=== PATIENT | female | born 1970 | race Caucasian/White ===

== ENCOUNTER 2017-08-31 20:14 | Emergency (ER) | payer MEDICAID ==
[~2017-08-31] VITALS: Ht 157.5 cm; Wt 72.2 kg
[~2017-08-31 20:14] MED LIST: ALBU18HF2 INH; ALBU8HFA PO; FLO44IN INH; PRED10TA PO
[2017-08-31 20:41] LABS: BASOPHILS # (AUTO) 0.2 X10'3 (0-0.2); BASOPHILS % (AUTO) 1.6 % (0-1); EOSINOPHILS # (AUTO) 0.1 X10'3 (0-0.9); EOSINOPHILS % (AUTO) 0.9 % (0-6); HEMATOCRIT 36.6 % (35.0-45.0); HEMOGLOBIN 12.1 g/dl (12.0-16.0); LYMPHOCYTES # (AUTO) 1.6 X10'3 (1.1-4.8); LYMPHOCYTES % (AUTO) 14.2 % (21-51); MEAN CORPUSCULAR HEMOGLOBIN 25.4 PG (27.0-31.0); MEAN PLATELET VOLUME 7.9 FL (7.4-10.4); MONOCYTES % (AUTO) 9.4 % (2-12); NEUTROPHILS # (AUTO) 8.1 X10'3 (1.8-7.7); NEUTROPHILS % (AUTO) 73.9 % (42-75); PLATELET COUNT 238 X10'3 (140-440); RED BLOOD COUNT 4.75 X10'6 (4.20-5.60); RED CELL DISTRIBUTION WIDTH 16.4 % (11.5-14.5)
[2017-08-31 20:51] LABS: INR 0.9 INR
[2017-08-31] MEDS ORDERED: SUCR1TAB34 PO (20:53)
[2017-08-31 20:54] LABS: ALANINE AMINOTRANSFERASE 36 U/L (12-78); ALBUMIN 3.6 G/DL (3.4-5.0); ALBUMIN/GLOBULIN RATIO 0.8 (1.1-1.5); ALKALINE PHOSPHATASE 88 IU/L (46-116); ANION GAP 12 (8-16); ASPARTATE AMINO TRANSFERASE 31 U/L (10-37); BILIRUBIN,TOTAL 0.7 MG/DL (0.1-1.0); BLOOD UREA NITROGEN 11 MG/DL (7-18); BUN/CREATININE RATIO 13.8 (6.6-38.0); CALCIUM 9.3 MG/DL (8.5-10.1); CHLORIDE 98 MMOL/L (99-107); GLUCOSE 94 MG/DL (70-104); POTASSIUM 3.8 MMOL/L (3.5-5.1); SODIUM 135 MMOL/L (135-145); TOTAL CARBON DIOXIDE 24.8 MMOL/L (24-32); TOTAL PROTEIN 8.3 G/DL (6.4-8.2); eGFR 77 ML/MIN
[2017-08-31] MEDS ORDERED: sucralfate 1 gm tablet PO ONE (21:00)
[2017-08-31 21:12] VITALS: BP 157/96
[2017-08-31 21:16] LABS: CLARITY,URINE CLEAR (Clear); COLOR,URINE YELLOW (Yellow); GLUCOSE, URINE NEGATIVE (Neg); KETONES,URINE NEGATIVE (Neg); LEUKOCYTE ESTERASE ,URINE NEGATIVE (Neg); NITRITES, URINE NEGATIVE (Neg); OCCULT BLOOD,URINE LARGE (Neg); PROTEIN,URINE NEGATIVE (Neg); UROBILINOGEN,URINE 0.2 E.U/dL (0.2-1.0)
[2017-08-31 21:23] LABS: UA COLLECTION TYPE CLN CATCH MIDSTREAM
[2017-08-31 21:25] LABS: BACTERIA,URINE 1+ /HPF (Neg); SQUAMOUS EPITHELIAL CELL,UR FEW /LPF (FEW)
== END 2017-08-31 21:14 | disposition home or self-care (01) ==
LOC: ER 20:14
DX: K29.70 Gastritis, unspecified, without bleeding (principal); J45.909 Unspecified asthma, uncomplicated; Z88.8 Allergy status to other drugs, medicaments and biological substances; Z79.899 Other long term (current) drug therapy
CPT/HCPCS: 36415; 80053; 81001; 85025; 85610; 87088; 99284

== ENCOUNTER 2018-01-17 01:03 | Emergency (ER) | payer MEDICAID ==
[~2018-01-17] VITALS: Ht 157.5 cm; Wt 73.7 kg
[~2018-01-17 01:03] MED LIST changes: +SUCR1TAB34 PO
[2018-01-17 01:07] VITALS: BP 166/108
[2018-01-17] MEDS ORDERED: methylPREDNISolone sod succ 125mg/2ml vial IM ONE (01:20)
[2018-01-17] MEDS ORDERED: ipratropium/albuterol 3ml nebule NEB ONE (01:20)
[2018-01-17] MEDS ORDERED: PRED20TA PO (02:21)
== END 2018-01-17 02:27 | disposition home or self-care (01) ==
LOC: ER 01:04
DX: J45.909 Unspecified asthma, uncomplicated (principal); Z88.8 Allergy status to other drugs, medicaments and biological substances; Z79.899 Other long term (current) drug therapy
CPT/HCPCS: 94640; 94760; 96372; 99283; J2930

== ENCOUNTER 2018-07-23 22:53 | Emergency (ER) | payer MEDICAID ==
[~2018-07-23] VITALS: Ht 157.5 cm; Wt 73.0 kg
[2018-07-23] MEDS ORDERED: ipratropium/albuterol 3ml nebule NEB ONE (23:15)
[2018-07-23] MEDS ORDERED: predniSONE 20 mg tablet PO ONE (23:15)
[2018-07-23] MEDS ORDERED: ONDA4TAB12 PO (23:49)
[2018-07-23] MEDS ORDERED: PRED20TA PO (23:49)
[2018-07-23] MEDS ORDERED: ondansetron 4mg rapidly disintigrating tab PO ONE (23:50)
[2018-07-24 00:16] VITALS: BP 153/89
== END 2018-07-24 00:18 | disposition home or self-care (01) ==
LOC: ER 22:53
DX: J45.901 Unspecified asthma with (acute) exacerbation (principal); J44.9 Chronic obstructive pulmonary disease, unspecified; Z87.891 Personal history of nicotine dependence; Z88.1 Allergy status to other antibiotic agents
CPT/HCPCS: 94640; 94760; 99283; J7512

== ENCOUNTER 2019-05-02 16:25 | Emergency (ER) | payer MEDICAID ==
[~2019-05-02] VITALS: Ht 157.5 cm; Wt 75.0 kg
[~2019-05-02 16:25] MED LIST changes: +ONDA4TAB12 PO
[2019-05-02] MEDS ORDERED: normal saline 1000ML IV soln IVB ONE (16:45)
[2019-05-02] MEDS ORDERED: methylPREDNISolone sod succ 125mg/2ml vial IV ONE (16:45)
[2019-05-02] MEDS ORDERED: magnesium 2GM in 50ml NS 50 ML IV ONE (16:45)
[2019-05-02] MEDS ORDERED: albuterol 2.5 MG/3 ML nebule CONTNEB PRN (16:45)
[2019-05-02 17:06] LABS: BASOPHILS # (AUTO) 0.1 X10'3 (0-0.2); BASOPHILS % (AUTO) 1.1 % (0-1); EOSINOPHILS # (AUTO) 0.5 X10'3 (0-0.9); EOSINOPHILS % (AUTO) 5.9 % (0-6); HEMATOCRIT 40.6 % (35.0-45.0); HEMOGLOBIN 14.1 g/dl (12.0-16.0); LYMPHOCYTES # (AUTO) 1.7 X10'3 (1.1-4.8); MEAN CORPUSCULAR HEMOGLOBIN 29.8 PG (27.0-31.0); MEAN CORPUSCULAR HGB CONC 34.8 g/dL (33.0-36.5); MEAN CORPUSCULAR VOLUME 85.5 FL (78-98); MEAN PLATELET VOLUME 7.7 FL (7.4-10.4); MONOCYTES # (AUTO) 0.9 X10'3 (0-0.9); MONOCYTES % (AUTO) 11.2 % (2-12); NEUTROPHILS % (AUTO) 60.8 % (42-75); PLATELET COUNT 257 X10'3 (140-440); RED BLOOD COUNT 4.74 X10'6 (4.20-5.60); RED CELL DISTRIBUTION WIDTH 15.7 % (11.5-14.5); WHITE BLOOD COUNT 8.3 X10'3 (4.5-11.0)
[2019-05-02 17:17] LABS: ALANINE AMINOTRANSFERASE 36 U/L (12-78); ALBUMIN 3.9 G/DL (3.4-5.0); ALBUMIN/GLOBULIN RATIO 0.9 (1.1-1.5); ALKALINE PHOSPHATASE 128 IU/L (46-116); ANION GAP 12 (8-16); ASPARTATE AMINO TRANSFERASE 24 U/L (10-37); BILIRUBIN,TOTAL 0.4 MG/DL (0.1-1.0); BLOOD UREA NITROGEN 10 MG/DL (7-18); BUN/CREATININE RATIO 11.2 (6.6-38.0); CALCIUM 9.5 MG/DL (8.5-10.1); CHLORIDE 103 MMOL/L (99-107); CREATININE 0.89 MG/DL (0.40-0.90); GLUCOSE 118 MG/DL (70-104); POTASSIUM 3.9 MMOL/L (3.5-5.1); SODIUM 139 MMOL/L (135-145); TOTAL CARBON DIOXIDE 23.6 MMOL/L (24-32); TOTAL PROTEIN 8.2 G/DL (6.4-8.2); eGFR 68 ML/MIN
[2019-05-02] MEDS ORDERED: PRED20TA PO (17:46)
[2019-05-02 18:38] VITALS: BP 162/108
== END 2019-05-02 18:39 | disposition home or self-care (01) ==
LOC: ER 16:26
DX: J45.901 Unspecified asthma with (acute) exacerbation (principal); Z87.11 Personal history of peptic ulcer disease; Z88.3 Allergy status to other anti-infective agents; Z79.899 Other long term (current) drug therapy
CPT/HCPCS: 36415; 71045; 80053; 85025; 94644; 96365; 96375; 99285; J2930; J3475; J7030; 94760

== ENCOUNTER 2019-06-17 08:48 | Emergency (ER) | payer MEDICAID ==
[~2019-06-17] VITALS: Ht 157.5 cm; Wt 75.8 kg
[2019-06-17] MEDS ORDERED: predniSONE 20 mg tablet PO ONE (09:25)
[2019-06-17] MEDS ORDERED: acetaminophen w/codeine (30MG) #3 tablet PO ONE (09:25)
[2019-06-17] MEDS ORDERED: PRED20TA PO (09:26)
[2019-06-17] MEDS ORDERED: ACET-3068 PO (09:27)
[2019-06-17 10:05] VITALS: BP 141/96
[2019-06-18] MEDS ORDERED: OMEP-50 PO (23:18)
[2019-06-18] MEDS ORDERED: MOME0.13 INH (23:18)
[2019-06-18] MEDS ORDERED: MULT-1085 PO (23:18)
[2019-06-18] MEDS ORDERED: FLUT16SP11 BOTHNARES (23:18)
[2019-06-18] MEDS ORDERED: ONDA4TAB6 PO (23:18)
[2019-06-18] MEDS ORDERED: ATRIN INH (23:18)
[2019-06-18] MEDS ORDERED: ALB0.5UD IH (23:18)
[2019-06-18] MEDS ORDERED: ALBU8HFA PO (23:18)
[2019-06-18] MEDS ORDERED: FEXO-61 PO (23:18)
[2019-06-18] MEDS ORDERED: IPRA3AMP31 IH (23:18)
[2019-06-19] MEDS ORDERED: PRED10TA23 PO (11:03)
== END 2019-06-17 10:08 | disposition home or self-care (01) ==
LOC: ER 08:49
DX: J45.901 Unspecified asthma with (acute) exacerbation (principal); J44.9 Chronic obstructive pulmonary disease, unspecified; Z90.710 Acquired absence of both cervix and uterus; Z87.891 Personal history of nicotine dependence; Z72.89 Other problems related to lifestyle; Z88.1 Allergy status to other antibiotic agents; Z79.899 Other long term (current) drug therapy
CPT/HCPCS: 93005; 99283; J7512

== ENCOUNTER 2020-09-22 20:14 | Emergency (ER) | payer MEDICAID ==
[~2020-09-22] VITALS: Ht 157.5 cm; Wt 80.9 kg
[~2020-09-22 20:14] MED LIST changes: -ALBU18HF2 INH; +ATRIN INH; +FEXO-61 PO; -FLO44IN INH; +FLUT16SP11 BOTHNARES; +IPRA3AMP31 IH; +MOME0.13 INH; +MULT-1085 PO; +OMEP-50 PO; -ONDA4TAB12 PO; +ONDA4TAB6 PO; -PRED10TA PO; -SUCR1TAB34 PO
[2020-09-22 22:38] VITALS: BP 185/117
== END 2020-09-22 22:39 | disposition home or self-care (01) ==
LOC: ER 20:14
DX: I10 Essential (primary) hypertension (principal); F17.210 Nicotine dependence, cigarettes, uncomplicated; Z71.6 Tobacco abuse counseling; J45.909 Unspecified asthma, uncomplicated; J44.1 Chronic obstructive pulmonary disease with (acute) exacerbation; Z88.1 Allergy status to other antibiotic agents; Z79.899 Other long term (current) drug therapy
CPT/HCPCS: 93005; 99283; 99406

== ENCOUNTER 2022-04-25 23:30 | Emergency (ER) | payer MEDICAID ==
[~2022-04-25] VITALS: Ht 157.5 cm; Wt 83.0 kg
[~2022-04-25 23:30] MED LIST changes: +FEXO-353 PO; -FEXO-61 PO; -MOME0.13 INH; +MOME110A INH; -OMEP-50 PO; +OMEP20CA16 PO
[2022-04-26 00:29] LABS: BASOPHILS # (AUTO) 0.1 X10'3 (0-0.2); BASOPHILS % (AUTO) 1.1 % (0-1); EOSINOPHILS # (AUTO) 0.8 X10'3 (0-0.9); EOSINOPHILS % (AUTO) 7.4 % (0-6); HEMATOCRIT 39.7 % (35.0-45.0); HEMOGLOBIN 13.6 g/dl (12.0-16.0); LYMPHOCYTES # (AUTO) 2.5 X10'3 (1.1-4.8); LYMPHOCYTES % (AUTO) 22.3 % (21-51); MEAN CORPUSCULAR HEMOGLOBIN 30.5 PG (27.0-31.0); MEAN CORPUSCULAR HGB CONC 34.2 g/dL (33.0-36.5); MEAN CORPUSCULAR VOLUME 88.9 FL (78-98); MEAN PLATELET VOLUME 7.5 FL (7.4-10.4); MONOCYTES # (AUTO) 1.2 X10'3 (0-0.9); MONOCYTES % (AUTO) 10.5 % (2-12); NEUTROPHILS # (AUTO) 6.5 X10'3 (1.8-7.7); NEUTROPHILS % (AUTO) 58.7 % (42-75); PLATELET COUNT 327 X10'3 (140-440); RED BLOOD COUNT 4.47 X10'6 (4.20-5.60); RED CELL DISTRIBUTION WIDTH 12.8 % (11.5-14.5); WHITE BLOOD COUNT 11.1 X10'3 (4.5-11.0)
[2022-04-26] MEDS ORDERED: methylPREDNISolone sod succ 125mg/2ml vial IV ONE (00:30)
[2022-04-26] MEDS ORDERED: ipratropium/albuterol 3ml nebule NEB ONE (00:30)
[2022-04-26 00:50] LABS: ALANINE AMINOTRANSFERASE 62 U/L (12-78); ALBUMIN 3.6 G/DL (3.4-5.0); ALBUMIN/GLOBULIN RATIO 0.8 (1.1-1.5); ALKALINE PHOSPHATASE 94 IU/L (46-116); ANION GAP 13 (8-16); ASPARTATE AMINO TRANSFERASE 23 U/L (10-37); BILIRUBIN,TOTAL 0.2 MG/DL (0.1-1.0); BLOOD UREA NITROGEN 7 MG/DL (7-18); BUN/CREATININE RATIO 9.5 (6.6-38.0); CALCIUM 9.4 MG/DL (8.5-10.1); CHLORIDE 99 MMOL/L (99-107); CREATININE 0.74 MG/DL (0.40-0.90); GLUCOSE 97 MG/DL (70-104); POTASSIUM 3.8 MMOL/L (3.5-5.1); SODIUM 135 MMOL/L (135-145); TOTAL CARBON DIOXIDE 22.7 MMOL/L (24-32); TOTAL PROTEIN 7.9 G/DL (6.4-8.2); eGFR 83 ML/MIN
[2022-04-26 02:20] LABS: D-DIMER 0.26 MG/L FEU (0-0.50)
[2022-04-26] MEDS ORDERED: PRED20TA PO (03:03)
[2022-04-26 03:16] VITALS: BP 145/77
== END 2022-04-26 03:18 | disposition home or self-care (01) ==
LOC: ER 23:31
DX: J44.9 Chronic obstructive pulmonary disease, unspecified (principal); Z90.49 Acquired absence of other specified parts of digestive tract; Z88.1 Allergy status to other antibiotic agents; Z79.899 Other long term (current) drug therapy
CPT/HCPCS: 36415; 71045; 80053; 83880; 84484; 85025; 85379; 85610; 93005; 94640; 96374; 99285; J2930; 94760

== ENCOUNTER 2022-07-05 02:43 | Emergency (ER) | payer MEDICAID ==
[~2022-07-05] VITALS: Ht 157.5 cm; Wt 78.2 kg
[2022-07-05] MEDS ORDERED: LORazepam 1 MG tablet PO ONE (03:30)
[2022-07-05] MEDS ORDERED: LORazepam 0.5 MG tablet PO ONE (03:35)
[2022-07-05 04:32] LABS: BASOPHILS # (AUTO) 0.1 X10'3 (0-0.2); BASOPHILS % (AUTO) 1.3 % (0-1); EOSINOPHILS # (AUTO) 0.3 X10'3 (0-0.9); HEMATOCRIT 31.9 % (35.0-45.0); HEMOGLOBIN 10.7 g/dl (12.0-16.0); LYMPHOCYTES # (AUTO) 2.1 X10'3 (1.1-4.8); MEAN CORPUSCULAR HEMOGLOBIN 29.1 PG (27.0-31.0); MEAN CORPUSCULAR HGB CONC 33.5 g/dL (33.0-36.5); MEAN CORPUSCULAR VOLUME 86.8 FL (78-98); MEAN PLATELET VOLUME 7.8 FL (7.4-10.4); MONOCYTES % (AUTO) 15.4 % (2-12); NEUTROPHILS # (AUTO) 3.2 X10'3 (1.8-7.7); NEUTROPHILS % (AUTO) 47.3 % (42-75); PLATELET COUNT 457 X10'3 (140-440); RED BLOOD COUNT 3.67 X10'6 (4.20-5.60); RED CELL DISTRIBUTION WIDTH 14.2 % (11.5-14.5); WHITE BLOOD COUNT 6.7 X10'3 (4.5-11.0)
[2022-07-05 04:49] LABS: ALANINE AMINOTRANSFERASE 10 U/L (12-78); ALBUMIN 2.5 G/DL (3.4-5.0); ALBUMIN/GLOBULIN RATIO 0.6 (1.1-1.5); ALKALINE PHOSPHATASE 95 IU/L (46-116); ANION GAP 9 (8-16); ASPARTATE AMINO TRANSFERASE 17 U/L (10-37); BILIRUBIN,TOTAL 0.3 MG/DL (0.1-1.0); BLOOD UREA NITROGEN 9 MG/DL (7-18); BUN/CREATININE RATIO 10.5 (6.6-38.0); CALCIUM 8.5 MG/DL (8.5-10.1); CHLORIDE 102 MMOL/L (99-107); CREATININE 0.86 MG/DL (0.40-0.90); GLUCOSE 90 MG/DL (70-104); MAGNESIUM 1.8 MG/DL (1.5-2.4); SODIUM 136 MMOL/L (135-145); TOTAL CARBON DIOXIDE 24.8 MMOL/L (24-32); TOTAL PROTEIN 6.9 G/DL (6.4-8.2); eGFR 70 ML/MIN
[2022-07-05 04:54] LABS: POTASSIUM 2.9 MMOL/L (3.5-5.1)
[2022-07-05] MEDS ORDERED: potassium Cl 20 mEq SR tablet PO STA ×2 (04:55→05:04)
[2022-07-05] MEDS ORDERED: POTA-207 PO (05:09)
[2022-07-05 05:20] VITALS: BP 124/67
== END 2022-07-05 05:26 | disposition home or self-care (01) ==
LOC: ER 02:44
DX: E87.6 Hypokalemia (principal); J44.9 Chronic obstructive pulmonary disease, unspecified; Z90.710 Acquired absence of both cervix and uterus; Z98.890 Other specified postprocedural states; Z87.891 Personal history of nicotine dependence; Z88.1 Allergy status to other antibiotic agents; Z88.8 Allergy status to other drugs, medicaments and biological substances; Z79.899 Other long term (current) drug therapy
CPT/HCPCS: 80053; 83735; 85025; 99283

== ENCOUNTER 2023-03-14 20:42 | Emergency (ER) | payer MEDICAID ==
[~2023-03-14] VITALS: Ht 157.5 cm; Wt 75.0 kg
[2023-03-14] MEDS ORDERED: ipratropium/albuterol 3ml nebule NEB ONE (20:55)
[2023-03-14 21:43] VITALS: PULSE 101; RESP 16; O2SAT 97
[2023-03-14 21:44] LABS: BASOPHILS # (AUTO) 0.1 X10'3 (0-0.2); BASOPHILS % (AUTO) 0.9 % (0-1); EOSINOPHILS # (AUTO) 0.2 X10'3 (0-0.9); EOSINOPHILS % (AUTO) 2.9 % (0-6); HEMATOCRIT 40.3 % (35.0-45.0); HEMOGLOBIN 13.7 g/dl (12.0-16.0); LYMPHOCYTES # (AUTO) 1.2 X10'3 (1.1-4.8); LYMPHOCYTES % (AUTO) 17.7 % (21-51); MEAN CORPUSCULAR HEMOGLOBIN 30.7 PG (27.0-31.0); MEAN CORPUSCULAR HGB CONC 33.9 g/dL (33.0-36.5); MEAN CORPUSCULAR VOLUME 90.4 FL (78-98); MEAN PLATELET VOLUME 7.8 FL (7.4-10.4); MONOCYTES # (AUTO) 1.1 X10'3 (0-0.9); MONOCYTES % (AUTO) 16.5 % (2-12); NEUTROPHILS # (AUTO) 4.2 X10'3 (1.8-7.7); PLATELET COUNT 213 X10'3 (140-440); RED BLOOD COUNT 4.45 X10'6 (4.20-5.60); RED CELL DISTRIBUTION WIDTH 13.5 % (11.5-14.5); WHITE BLOOD COUNT 6.8 X10'3 (4.5-11.0)
--- NOTE | 2023-03-14 21:44 | NUR ---
RT AT BEDSIDE WITH PATIENT.
[2023-03-14 21:50] VITALS: PULSE 96; RESP 18
[2023-03-14 21:50] LABS: ALANINE AMINOTRANSFERASE 16 U/L (12-78); ALBUMIN 3.7 G/DL (3.4-5.0); ALBUMIN/GLOBULIN RATIO 0.9 (1.1-1.5); ALKALINE PHOSPHATASE 108 IU/L (46-116); ANION GAP 10 (8-16); ASPARTATE AMINO TRANSFERASE 18 U/L (10-37); BILIRUBIN,TOTAL 0.5 MG/DL (0.1-1.0); BLOOD UREA NITROGEN 13 MG/DL (7-18); BUN/CREATININE RATIO 13.1 (10.0-20.0); CALCIUM 9.2 MG/DL (8.5-10.1); CHLORIDE 101 MMOL/L (99-107); CREATININE 0.99 MG/DL (0.40-0.90); GLUCOSE 106 MG/DL (70-104); POTASSIUM 3.7 MMOL/L (3.5-5.1); SODIUM 137 MMOL/L (135-145); TOTAL CARBON DIOXIDE 26.4 MMOL/L (24-32); TOTAL PROTEIN 7.7 G/DL (6.4-8.2); eCRCL 53 ML/MIN; eGFR 59 ML/MIN
[2023-03-14 21:57] LABS: PRO BRAIN NATRIURETIC PEPTIDE 47 PG/ML (0-125)
[2023-03-14 22:05] LABS: PLATELET ESTIMATE NORMAL; TOTAL CELLS COUNTED 100
[2023-03-14 22:08] LABS: ELLIPTOCYTES FEW
[2023-03-14] MEDS ORDERED: PRED20TA PO (22:53)
[2023-03-14] MEDS ORDERED: FAMO-128 PO (22:53)
[2023-03-14] MEDS ORDERED: methylPREDNISolone sod succ 125mg/2ml vial IV ONE (22:55)
[2023-03-14] MEDS ORDERED: famotidine/PF 10 mg/ml inj IV ONE (22:55)
[2023-03-14] MEDS ORDERED: pantoprazole 40 MG vial IV ONE (22:55)
[2023-03-14 23:40] VITALS: BP 152/96; PULSE 109; RESP 18; TEMP 98; O2SAT 93
== END 2023-03-14 23:44 | disposition home or self-care (01) ==
LOC: ER 20:43
DX: J44.1 Chronic obstructive pulmonary disease with (acute) exacerbation (principal); Z20.822 Contact with and (suspected) exposure to COVID-19; Z90.710 Acquired absence of both cervix and uterus; Z98.890 Other specified postprocedural states; Z72.89 Other problems related to lifestyle; Z88.1 Allergy status to other antibiotic agents; Z79.899 Other long term (current) drug therapy
CPT/HCPCS: 36415; 71045; 80053; 83880; 84484; 85007; 85025; 87502; 87503; 87811; 93005; 94640; 96374; 96375; 99285; C9113; J2930; J3490; 94760

== ENCOUNTER 2023-06-02 01:54 | Emergency (ER) | payer MEDICAID ==
[~2023-06-02] VITALS: Ht 157.5 cm; Wt 82.1 kg
[~2023-06-02 01:54] MED LIST changes: +FAMO-128 PO
[2023-06-02 01:56] VITALS: TEMP 98.4
[2023-06-02] MEDS: TETanus/Pertussis (Acell)/Diphther VAC/PF (Tdap-Adult) 0.5ml syringe IMVAC ONE (02:52)
[2023-06-02] MEDS: bacitracin 15gm ointment TP ONE (02:53)
[2023-06-02 02:58] VITALS: BP 118/78; PULSE 95; RESP 18; O2SAT 96
== END 2023-06-02 03:01 | disposition home or self-care (01) ==
LOC: ER 01:55
DX: S01.111A Laceration without foreign body of right eyelid and periocular area, initial encounter (principal); J44.9 Chronic obstructive pulmonary disease, unspecified; Z88.1 Allergy status to other antibiotic agents; Z88.8 Allergy status to other drugs, medicaments and biological substances; Z79.899 Other long term (current) drug therapy; Z90.710 Acquired absence of both cervix and uterus; W22.8XXA Striking against or struck by other objects, initial encounter; Y93.89 Activity, other specified; Y92.89 Other specified places as the place of occurrence of the external cause; Y99.8 Other external cause status
CPT/HCPCS: 90471; 90715; 99283

== ENCOUNTER 2024-07-12 14:01 | Emergency (ER) | payer BC, MEDICAID ==
[~2024-07-12] VITALS: Ht 157.5 cm; Wt 87.1 kg
[2024-07-12 15:23] VITALS: PULSE 76
[2024-07-12 16:48] LABS: BASOPHILS # (AUTO) 0.1 X10'3 (0-0.2); BASOPHILS % (AUTO) 0.8 % (0-1); EOSINOPHILS # (AUTO) 0.1 X10'3 (0-0.9); EOSINOPHILS % (AUTO) 0.9 % (0-6); HEMATOCRIT 43.1 % (35.0-45.0); HEMOGLOBIN 14.5 g/dl (12.0-16.0); LYMPHOCYTES # (AUTO) 1.4 X10'3 (1.1-4.8); LYMPHOCYTES % (AUTO) 16.5 % (21-51); MEAN CORPUSCULAR HEMOGLOBIN 29.9 PG (27.0-31.0); MEAN CORPUSCULAR HGB CONC 33.6 g/dL (33.0-36.5); MEAN CORPUSCULAR VOLUME 88.9 FL (78-98); MEAN PLATELET VOLUME 7.8 FL (7.4-10.4); MONOCYTES % (AUTO) 11.7 % (2-12); NEUTROPHILS # (AUTO) 5.8 X10'3 (1.8-7.7); NEUTROPHILS % (AUTO) 70.1 % (42-75); PLATELET COUNT 262 X10'3 (140-440); RED BLOOD COUNT 4.85 X10'6 (4.20-5.60); WHITE BLOOD COUNT 8.3 X10'3 (4.5-11.0)
[2024-07-12 17:00] LABS: APTT 25 SECONDS (22-32)
[2024-07-12 17:02] LABS: ALANINE AMINOTRANSFERASE 24 U/L (12-78); ALBUMIN 3.9 G/DL (3.4-5.0); ALBUMIN/GLOBULIN RATIO 0.7 (1.1-1.5); ALKALINE PHOSPHATASE 119 IU/L (46-116); ANION GAP 8 (8-16); ASPARTATE AMINO TRANSFERASE 14 U/L (10-37); BILIRUBIN,TOTAL 0.6 MG/DL (0.1-1.0); BLOOD UREA NITROGEN 15 MG/DL (7-18); BUN/CREATININE RATIO 16.7 (10.0-20.0); CALCIUM 9.1 MG/DL (8.5-10.1); CHLORIDE 100 MMOL/L (99-107); GLUCOSE 105 MG/DL (70-104); LIPASE 71 U/L (16-77); POTASSIUM 4.3 MMOL/L (3.5-5.1); SODIUM 137 MMOL/L (135-145); TOTAL CARBON DIOXIDE 28.6 MMOL/L (24-32); TOTAL PROTEIN 9.3 G/DL (6.4-8.2); eCRCL 57 ML/MIN; eGFR 65 ML/MIN
[2024-07-12 17:04] LABS: BILIRUBIN,URINE NEGATIVE (Neg); CLARITY,URINE CLEAR (Clear); COLOR,URINE YELLOW (Yellow); GLUCOSE, URINE NEGATIVE (Neg); KETONES,URINE NEGATIVE (Neg); LEUKOCYTE ESTERASE ,URINE NEGATIVE (Neg); NITRITES, URINE NEGATIVE (Neg); OCCULT BLOOD,URINE NEGATIVE (Neg); PROTEIN,URINE NEGATIVE (Neg); UROBILINOGEN,URINE 0.2 E.U/dL (0.2-1.0)
[2024-07-12 17:05] LABS: UA COLLECTION TYPE CLN CATCH MIDSTREAM
[2024-07-12 17:58] VITALS: BP 146/91; RESP 14; TEMP 98.3; O2SAT 95
== END 2024-07-12 18:04 | disposition home or self-care (01) ==
LOC: ER 14:02
DX: R10.9 Unspecified abdominal pain (principal); J44.9 Chronic obstructive pulmonary disease, unspecified; Z88.1 Allergy status to other antibiotic agents; Z88.8 Allergy status to other drugs, medicaments and biological substances; Z90.710 Acquired absence of both cervix and uterus; Z98.890 Other specified postprocedural states
CPT/HCPCS: 36415; 74176; 80053; 81003; 83690; 85025; 85610; 85730; 99284